=== PATIENT | male | born 1930 | race Caucasian/White ===

== ENCOUNTER 2017-12-14 11:32 | Inpatient (IN) | payer MEDICARE, OTHER ==
[2017-12-14] MEDS ORDERED: MAGNESIUM SULFATE 1 GM/100 ML D5W BAG (10MG/ML) (J3475) As Ordered (11:33)
[2017-12-14] MEDS ORDERED: ACETAMINOPHEN TAB 650MG DOSE (2X325MG) As Ordered (11:36)
[2017-12-14] MEDS: MAG SULF 1GM/100ML (MAG RUN) 1 GM in APPROPRIATE DILUENT 1 EA IV (11:40)
[2017-12-14] MEDS: ACETAMINOPHEN TAB 650MG DOSE (2X325MG) PO (12:00)
[2017-12-14 12:26] LABS: ABG BASE EXCESS -4.7 (-2.0-2.0); ABG HCO3 18.6 MEQ/L (22.0-26.0); ABG O2 SATURATION 96.7 % (95.0-99.0); ABG PARTIAL PRESSURE CO2 29.6 mmHg (35.0-45.0); ABG PARTIAL PRESSURE O2 80.7 mmHg (75.0-100.0); ABG STANDARD HCO3 20.6 MEQ/L (22.0-26.0); ABG TOTAL CO2 19.5 MEQ/L (23.0-31.0); ABG pH (ARTERIAL) 7.416 UNITS (7.350-7.450)
[2017-12-14 12:34] LABS: INTERNAL CONTROL NO RESULT
[2017-12-14 12:38] LABS: BASO % 0.3 % (0.0-1.0); EOS % 0.3 % (0.0-3.0); HEMATOCRIT 39.9 % (42.0-52.0); HEMOGLOBIN 12.9 g/dl (14.0-18.0); IMMATURE GRANULOCYTE % 0.5 % (0-3.0); LYMPH # 0.3 10^3/uL (1.5-4.5); LYMPH % 3.9 % (24.0-44.0); MEAN CORPUSCULAR HEMOGLOBIN 29.7 pg (27.0-33.0); MEAN CORPUSCULAR HGB CONC 32.3 g/dl (32.0-36.5); MEAN CORPUSCULAR VOLUME 91.7 fl (80.0-96.0); MONO % 12.6 % (0.0-5.0); NEUTROPHILS # 6.5 10^3/uL (1.8-7.7); NEUTROPHILS % 82.4 % (36.0-66.0); PLATELET COUNT, AUTOMATED 171 10^3/uL (150-450); RED BLOOD COUNT 4.35 10^6/uL (4.30-6.10); RED CELL DISTRIBUTION WIDTH 13.8 % (11.5-14.5); WHITE BLOOD COUNT 7.9 10^3/uL (4.0-10.0)
[2017-12-14 12:46] LABS: INR 1.18; PROTHROMBIN TIME 15.2 SECONDS (12.4-14.5)
[2017-12-14 12:47] LABS: PARTIAL THROMBOPLASTIN TIME 33.7 SECONDS (26.8-37.9)
[2017-12-14 12:56] LABS: MAGNESIUM LEVEL 2.2 MG/DL (1.8-2.4)
[2017-12-14 13:06] LABS: ALBUMIN 3.2 GM/DL (3.2-5.2); ALBUMIN/GLOBULIN RATIO 0.89 (1.00-1.93); ALKALINE PHOSPHATASE 96 U/L (45-117); ALT/SGPT 34 U/L (12-78); ANION GAP 9 MEQ/L (8-16); AST/SGOT 29 U/L (7-37); BILIRUBIN,DIRECT 0.2 MG/DL (0.0-0.2); BILIRUBIN,TOTAL 0.8 MG/DL (0.2-1.0); BLOOD UREA NITROGEN 23 MG/DL (7-18); CALCIUM LEVEL 8.8 MG/DL (8.8-10.2); CARBON DIOXIDE LEVEL 21 MEQ/L (21-32); CHLORIDE LEVEL 107 MEQ/L (98-107); CPK CREATINE PHOSPHOKINASE 71 U/L (39-308); GLOMERULAR FILTRATION RATE 43.5 (>35); GLUCOSE, FASTING 216 MG/DL (70-100); POTASSIUM SERUM 4.7 MEQ/L (3.5-5.1); SODIUM LEVEL 137 MEQ/L (136-145); TOTAL PROTEIN 6.8 GM/DL (6.4-8.2); TROPONIN I 0.25 NG/ML (< 0.10)
[2017-12-14 13:11] LABS: C REACTIVE PROTEIN QUANTITATIV 2.04 MG/DL (0.00-0.30)
[2017-12-14 13:14] LABS: LACTIC ACID SEPSIS PROTOCOL 1.8 MMOL/L (0.4-2.0)
[2017-12-14 13:22] LABS: INFLUENZA A AMPLIFICATION NEGATIVE (NEGATIVE); INFLUENZA B AMPLIFICATION NEGATIVE (NEGATIVE)
[2017-12-14 13:53] LABS: APPEARANCE, URINE CLEAR (CLEAR); BACTERIA, URINE AUTO NEGATIVE (NEGATIVE); BILIRUBIN, URINE AUTO NEGATIVE (NEGATIVE); BLOOD, URINE BLOOD NEGATIVE (NEGATIVE); COLOR, URINE YELLOW (YELLOW); GLUCOSE, URINE (UA) AUTO 1+ mg/dL (NEGATIVE); KETONE, URINE AUTO TRACE mg/dL (NEGATIVE); LEUKOCYTE ESTERASE, URINE AUTO NEGATIVE (NEGATIVE); NITRITE, URINE AUTO NEGATIVE (NEGATIVE); PROTEIN, URINE AUTO NEGATIVE (NEGATIVE); RBC, URINE AUTO 1 /HPF (0-3); SPECIFIC GRAVITY URINE AUTO 1.014 (1.002-1.035); SQUAMOUS EPITHELIAL CELL UR AU 0 /HPF (0-6); UROBILINOGEN, URINE AUTO 0.2 mg/dL (0.0-2.0); WBC, URINE AUTO 1 /HPF (0-3)
[2017-12-14] MEDS ORDERED: AZTREONAM 1 GM in D5W MINI-BAG PLUS 50 ML IV (14:30)
[2017-12-14] MEDS ORDERED: AZITHROMYCIN INJ 500 MG, VIAL MATE ADAPTER 1 EACH in D5W 250 ML IV ×2 (14:30→16:00)
[2017-12-14] MEDS ORDERED: GLUCOSE 4 GM CHEW TABLET PO (15:30)
[2017-12-14] MEDS ORDERED: GLUCAGON FOR INJ 1 MG VIAL (J1610) SC (15:30)
[2017-12-14] MEDS ORDERED: DEXTROSE 50% 50 ML SYRINGE IV (15:30)
[2017-12-14 17:07] LABS: BEDSIDE GLUCOSE 185 MG/DL (83-110)
[2017-12-14] MEDS: HumaLOG INSULIN (NovoLOG) PER UNIT SC ×2 (17:53→21:10)
[2017-12-14] MEDS: AZTREONAM 1 GM in D5W MINI-BAG PLUS 50 ML IV ×2 (17:54→23:22)
[2017-12-14 18:29] LABS: CPK CREATINE PHOSPHOKINASE 66 U/L (39-308); MB/CK RELATIVE INDEX 1.51 (< OR =4)
[2017-12-14] MEDS: AZITHROMYCIN INJ 500 MG, VIAL MATE ADAPTER 1 EACH in D5W 250 ML IV (19:06)
[2017-12-14] MEDS: MAGNESIUM OXIDE 400 MG TAB (MAG-OX) PO (21:05)
[2017-12-14] MEDS: ASPIRIN 81 MG ENTERIC TAB PO (21:05)
[2017-12-14] MEDS: CYANOCOBALAMIN 500 MCG TAB PO (21:05)
[2017-12-14] MEDS: DOCUSATE SODIUM 100 MG CAP PO (21:05)
[2017-12-14] MEDS: ATORVASTATIN 10 MG TAB PO (21:05)
[2017-12-14] MEDS: TAMSULOSIN 0.4 MG CAP PO (21:05)
[2017-12-14 21:31] LABS: BEDSIDE GLUCOSE 266 MG/DL (83-110)
[2017-12-15 03:18] LABS: HEMATOCRIT 35.6 % (42.0-52.0); HEMOGLOBIN 11.6 g/dl (14.0-18.0); MEAN CORPUSCULAR HEMOGLOBIN 29.6 pg (27.0-33.0); MEAN CORPUSCULAR HGB CONC 32.6 g/dl (32.0-36.5); MEAN CORPUSCULAR VOLUME 90.8 fl (80.0-96.0); PLATELET COUNT, AUTOMATED 149 10^3/uL (150-450); RED BLOOD COUNT 3.92 10^6/uL (4.30-6.10); WHITE BLOOD COUNT 7.2 10^3/uL (4.0-10.0)
[2017-12-15 03:41] LABS: ANION GAP 9 MEQ/L (8-16); BLOOD UREA NITROGEN 26 MG/DL (7-18); CALCIUM LEVEL 8.4 MG/DL (8.8-10.2); CARBON DIOXIDE LEVEL 23 MEQ/L (21-32); CHLORIDE LEVEL 107 MEQ/L (98-107); CREATININE FOR GFR 1.48 MG/DL (0.70-1.30); GLOMERULAR FILTRATION RATE 47.6 (>35); GLUCOSE, FASTING 174 MG/DL (70-100); MAGNESIUM LEVEL 2.2 MG/DL (1.8-2.4); POTASSIUM SERUM 4.6 MEQ/L (3.5-5.1); SODIUM LEVEL 139 MEQ/L (136-145)
[2017-12-15 03:45] LABS: CPK CREATINE PHOSPHOKINASE 74 U/L (39-308); MB/CK RELATIVE INDEX 1.35 (< OR =4); TROPONIN I 0.31 NG/ML (< 0.10)
[2017-12-15] MEDS ORDERED: SLF 3 ML SYR IV (04:15)
[2017-12-15] MEDS: SLF 3 ML SYR IV ×3 (06:00→21:28)
[2017-12-15] MEDS: AZTREONAM 1 GM in D5W MINI-BAG PLUS 50 ML IV ×3 (06:32→21:27)
[2017-12-15] MEDS: HumaLOG INSULIN (NovoLOG) PER UNIT SC ×4 (07:30→21:00)
[2017-12-15] MEDS: MAGNESIUM OXIDE 400 MG TAB (MAG-OX) PO ×2 (08:56→21:28)
[2017-12-15 11:12] LABS: CPK CREATINE PHOSPHOKINASE 84 U/L (39-308); MB/CK RELATIVE INDEX 1.19 (< OR =4); TROPONIN I 0.23 NG/ML (< 0.10)
[2017-12-15 12:15] LABS: BEDSIDE GLUCOSE 189 MG/DL (83-110)
[2017-12-15] MEDS: guaiFENesin 200 MG TAB PO ×3 (13:25→21:28)
[2017-12-15] MEDS: ACETAMINOPHEN 325 MG TAB PO (16:37)
[2017-12-15 17:06] LABS: BEDSIDE GLUCOSE 174 MG/DL (83-110)
[2017-12-15] MEDS: AZITHROMYCIN INJ 500 MG, VIAL MATE ADAPTER 1 EACH in D5W 250 ML IV (17:45)
[2017-12-15] MEDS: METOPROLOL TART 12.5 MG PER 1/2 TAB PO (17:48)
[2017-12-15 20:33] LABS: BEDSIDE GLUCOSE 222 MG/DL (83-110)
[2017-12-15] MEDS: ATORVASTATIN 10 MG TAB PO (21:28)
[2017-12-15] MEDS: ASPIRIN 81 MG ENTERIC TAB PO (21:28)
[2017-12-15] MEDS: TAMSULOSIN 0.4 MG CAP PO (21:28)
[2017-12-15] MEDS: DOCUSATE SODIUM 100 MG CAP PO (21:28)
[2017-12-16] MEDS: guaiFENesin 200 MG TAB PO ×6 (01:04→21:43)
[2017-12-16] MEDS: SLF 3 ML SYR IV ×3 (05:10→21:43)
[2017-12-16] MEDS: METOPROLOL TART 12.5 MG PER 1/2 TAB PO ×4 (05:10→17:35)
[2017-12-16] MEDS: AZTREONAM 1 GM in D5W MINI-BAG PLUS 50 ML IV ×3 (05:11→21:43)
[2017-12-16 05:52] LABS: HEMATOCRIT 37.2 % (42.0-52.0); MEAN CORPUSCULAR HEMOGLOBIN 28.8 pg (27.0-33.0); MEAN CORPUSCULAR HGB CONC 32.3 g/dl (32.0-36.5); MEAN CORPUSCULAR VOLUME 89.4 fl (80.0-96.0); PLATELET COUNT, AUTOMATED 146 10^3/uL (150-450); RED BLOOD COUNT 4.16 10^6/uL (4.30-6.10); RED CELL DISTRIBUTION WIDTH 13.5 % (11.5-14.5); WHITE BLOOD COUNT 8.2 10^3/uL (4.0-10.0)
[2017-12-16 06:13] LABS: ANION GAP 7 MEQ/L (8-16); BLOOD UREA NITROGEN 29 MG/DL (7-18); CALCIUM LEVEL 8.6 MG/DL (8.8-10.2); CARBON DIOXIDE LEVEL 23 MEQ/L (21-32); CHLORIDE LEVEL 104 MEQ/L (98-107); CREATININE FOR GFR 1.48 MG/DL (0.70-1.30); GLOMERULAR FILTRATION RATE 47.6 (>35); GLUCOSE, FASTING 166 MG/DL (70-100); MAGNESIUM LEVEL 2.2 MG/DL (1.8-2.4); POTASSIUM SERUM 4.7 MEQ/L (3.5-5.1); SODIUM LEVEL 134 MEQ/L (136-145)
[2017-12-16] MEDS: HumaLOG INSULIN (NovoLOG) PER UNIT SC ×4 (09:02→21:00)
[2017-12-16] MEDS: MAGNESIUM OXIDE 400 MG TAB (MAG-OX) PO ×2 (09:02→21:43)
[2017-12-16] MEDS: NS 1,000 ML IV (09:40)
[2017-12-16 11:58] LABS: BEDSIDE GLUCOSE 126 MG/DL (83-110)
[2017-12-16] MEDS: ACETAMINOPHEN 325 MG TAB PO (12:02)
[2017-12-16] MEDS ORDERED: VANCOMYCIN HCL 750 MG, VIAL MATE ADAPTER 1 EACH in D5W 250 ML IV (14:15)
[2017-12-16] MEDS: VANCOMYCIN HCL 1,000 MG, VIAL MATE ADAPTER 1 EACH in D5W 250 ML IV (15:23)
[2017-12-16] MEDS: VANCOMYCIN HCL 500 MG in D5W MINI-BAG PLUS 100 ML IV (16:35)
[2017-12-16 17:11] LABS: BEDSIDE GLUCOSE 220 MG/DL (83-110)
[2017-12-16] MEDS: AZITHROMYCIN INJ 500 MG, VIAL MATE ADAPTER 1 EACH in D5W 250 ML IV (17:35)
[2017-12-16 21:41] LABS: BEDSIDE GLUCOSE 93 MG/DL (83-110)
[2017-12-16] MEDS: TAMSULOSIN 0.4 MG CAP PO (21:43)
[2017-12-16] MEDS: ASPIRIN 81 MG ENTERIC TAB PO (21:43)
[2017-12-16] MEDS: ATORVASTATIN 10 MG TAB PO (21:43)
[2017-12-16] MEDS: DOCUSATE SODIUM 100 MG CAP PO (21:43)
[2017-12-17] MEDS: guaiFENesin 200 MG TAB PO ×6 (00:56→21:34)
[2017-12-17] MEDS: ACETAMINOPHEN 325 MG TAB PO ×4 (00:57→23:52)
[2017-12-17] MEDS: NS 1,000 ML IV (00:57)
[2017-12-17] MEDS: METOPROLOL TART 12.5 MG PER 1/2 TAB PO ×4 (00:57→17:36)
[2017-12-17 05:09] LABS: HEMATOCRIT 35.8 % (42.0-52.0); HEMOGLOBIN 11.8 g/dl (14.0-18.0); MEAN CORPUSCULAR HEMOGLOBIN 29.2 pg (27.0-33.0); MEAN CORPUSCULAR VOLUME 88.6 fl (80.0-96.0); PLATELET COUNT, AUTOMATED 157 10^3/uL (150-450); RED BLOOD COUNT 4.04 10^6/uL (4.30-6.10); RED CELL DISTRIBUTION WIDTH 13.4 % (11.5-14.5); WHITE BLOOD COUNT 5.6 10^3/uL (4.0-10.0)
[2017-12-17 05:21] LABS: ANION GAP 7 MEQ/L (8-16); BLOOD UREA NITROGEN 38 MG/DL (7-18); CALCIUM LEVEL 8.2 MG/DL (8.8-10.2); CARBON DIOXIDE LEVEL 22 MEQ/L (21-32); CHLORIDE LEVEL 105 MEQ/L (98-107); CREATININE FOR GFR 1.49 MG/DL (0.70-1.30); GLOMERULAR FILTRATION RATE 47.3 (>35); GLUCOSE, FASTING 154 MG/DL (70-100); MAGNESIUM LEVEL 2.2 MG/DL (1.8-2.4); POTASSIUM SERUM 4.5 MEQ/L (3.5-5.1); SODIUM LEVEL 134 MEQ/L (136-145)
[2017-12-17] MEDS: SLF 3 ML SYR IV ×3 (06:00→21:44)
[2017-12-17] MEDS: AZTREONAM 1 GM in D5W MINI-BAG PLUS 50 ML IV ×3 (06:34→21:35)
[2017-12-17] MEDS: HumaLOG INSULIN (NovoLOG) PER UNIT SC ×4 (08:57→21:00)
[2017-12-17] MEDS: VANCOMYCIN HCL 1,000 MG, VIAL MATE ADAPTER 1 EACH in D5W 250 ML IV (08:58)
[2017-12-17] MEDS: MAGNESIUM OXIDE 400 MG TAB (MAG-OX) PO ×2 (08:58→21:34)
[2017-12-17 11:40] LABS: BEDSIDE GLUCOSE 195 MG/DL (83-110)
[2017-12-17] MEDS: SENOKOT S TAB PO ×2 (11:57→23:52)
[2017-12-17 16:51] LABS: BEDSIDE GLUCOSE 115 MG/DL (83-110)
[2017-12-17 21:30] LABS: BEDSIDE GLUCOSE 120 MG/DL (83-110)
[2017-12-17] MEDS: ASPIRIN 81 MG ENTERIC TAB PO (21:33)
[2017-12-17] MEDS: DOCUSATE SODIUM 100 MG CAP PO (21:33)
[2017-12-17] MEDS: TAMSULOSIN 0.4 MG CAP PO (21:34)
[2017-12-17] MEDS: ATORVASTATIN 10 MG TAB PO (21:34)
[2017-12-17] MEDS: CYANOCOBALAMIN 500 MCG TAB PO (21:34)
[2017-12-18 00:06] LABS: BODY FLUID CULTURE Not Indicated (.); LEGIONELLA ANTIGEN URINE Negative (Negative); ORGANISM ID Not indicated. (.); SPECIMEN SOURCE Urine (.); URINE STREP PNEUMONIAE ANTIGEN Negative (Negative)
[2017-12-18 05:47] LABS: HEMATOCRIT 38.6 % (42.0-52.0); HEMOGLOBIN 12.7 g/dl (14.0-18.0); MEAN CORPUSCULAR HEMOGLOBIN 29.6 pg (27.0-33.0); MEAN CORPUSCULAR HGB CONC 32.9 g/dl (32.0-36.5); PLATELET COUNT, AUTOMATED 163 10^3/uL (150-450); RED BLOOD COUNT 4.29 10^6/uL (4.30-6.10); RED CELL DISTRIBUTION WIDTH 13.4 % (11.5-14.5)
[2017-12-18 06:18] LABS: ANION GAP 11 MEQ/L (8-16); BLOOD UREA NITROGEN 40 MG/DL (7-18); CALCIUM LEVEL 8.2 MG/DL (8.8-10.2); CARBON DIOXIDE LEVEL 22 MEQ/L (21-32); CHLORIDE LEVEL 103 MEQ/L (98-107); CREATININE FOR GFR 1.67 MG/DL (0.70-1.30); GLOMERULAR FILTRATION RATE 41.4 (>35); GLUCOSE, FASTING 133 MG/DL (70-100); MAGNESIUM LEVEL 2.5 MG/DL (1.8-2.4); POTASSIUM SERUM 5.1 MEQ/L (3.5-5.1); SODIUM LEVEL 136 MEQ/L (136-145)
[2017-12-18] MEDS: METOPROLOL TART 12.5 MG PER 1/2 TAB PO ×5 (06:39→23:37)
[2017-12-18] MEDS: MOXIFLOXACIN 400 MG TAB PO (06:39)
[2017-12-18] MEDS: ACETAMINOPHEN 325 MG TAB PO (06:40)
[2017-12-18] MEDS: SLF 3 ML SYR IV ×3 (06:40→21:03)
[2017-12-18] MEDS: HumaLOG INSULIN (NovoLOG) PER UNIT SC ×4 (09:00→21:00)
[2017-12-18] MEDS: MAGNESIUM OXIDE 400 MG TAB (MAG-OX) PO ×2 (09:00→20:48)
[2017-12-18] MEDS: guaiFENesin 200 MG TAB PO ×4 (09:09→21:01)
[2017-12-18 12:12] LABS: BEDSIDE GLUCOSE 201 MG/DL (83-110)
[2017-12-18] MEDS: NS 1,000 ML IV (14:58)
[2017-12-18 17:42] LABS: BEDSIDE GLUCOSE 225 MG/DL (83-110)
[2017-12-18] MEDS: SENOKOT S TAB PO (21:00)
[2017-12-18] MEDS: ATORVASTATIN 10 MG TAB PO (21:01)
[2017-12-18] MEDS: ASPIRIN 81 MG ENTERIC TAB PO (21:02)
[2017-12-18] MEDS: TAMSULOSIN 0.4 MG CAP PO (21:03)
[2017-12-18] MEDS: ACETAMINOPHEN TAB 650MG DOSE (2X325MG) PO (21:04)
[2017-12-18 21:29] LABS: BEDSIDE GLUCOSE 98 MG/DL (83-110)
[2017-12-18] MEDS: ALBUTEROL SULFATE 2.5 MG/0.5 ML INH NEB SOLN NEB (22:03)
[2017-12-19 05:09] LABS: HEMATOCRIT 34.8 % (42.0-52.0); HEMOGLOBIN 11.4 g/dl (14.0-18.0); MEAN CORPUSCULAR HEMOGLOBIN 28.9 pg (27.0-33.0); MEAN CORPUSCULAR HGB CONC 32.8 g/dl (32.0-36.5); MEAN CORPUSCULAR VOLUME 88.1 fl (80.0-96.0); PLATELET COUNT, AUTOMATED 186 10^3/uL (150-450); RED BLOOD COUNT 3.95 10^6/uL (4.30-6.10); RED CELL DISTRIBUTION WIDTH 13.5 % (11.5-14.5); WHITE BLOOD COUNT 5.6 10^3/uL (4.0-10.0)
[2017-12-19] MEDS: METOPROLOL TART 12.5 MG PER 1/2 TAB PO (05:21)
[2017-12-19] MEDS: SLF 3 ML SYR IV ×3 (05:21→21:34)
[2017-12-19 05:29] LABS: ANION GAP 9 MEQ/L (8-16); BLOOD UREA NITROGEN 46 MG/DL (7-18); CALCIUM LEVEL 8.4 MG/DL (8.8-10.2); CARBON DIOXIDE LEVEL 24 MEQ/L (21-32); CHLORIDE LEVEL 106 MEQ/L (98-107); CREATININE FOR GFR 1.67 MG/DL (0.70-1.30); GLOMERULAR FILTRATION RATE 41.4 (>35); GLUCOSE, FASTING 133 MG/DL (70-100); MAGNESIUM LEVEL 2.6 MG/DL (1.8-2.4); POTASSIUM SERUM 4.2 MEQ/L (3.5-5.1); SODIUM LEVEL 139 MEQ/L (136-145)
[2017-12-19] MEDS: MOXIFLOXACIN 400 MG TAB PO (06:15)
[2017-12-19] MEDS: HumaLOG INSULIN (NovoLOG) PER UNIT SC ×4 (07:30→21:34)
[2017-12-19] MEDS: guaiFENesin 200 MG TAB PO ×4 (08:07→21:28)
[2017-12-19] MEDS: NS 1,000 ML IV ×2 (08:07→21:27)
[2017-12-19] MEDS: MAGNESIUM OXIDE 400 MG TAB (MAG-OX) PO ×2 (09:00→20:44)
[2017-12-19 12:00] LABS: BEDSIDE GLUCOSE 293 MG/DL (83-110)
[2017-12-19 16:34] LABS: BEDSIDE GLUCOSE 131 MG/DL (83-110)
[2017-12-19] MEDS: ATORVASTATIN 10 MG TAB PO (21:28)
[2017-12-19] MEDS: TAMSULOSIN 0.4 MG CAP PO (21:28)
[2017-12-19] MEDS: SENOKOT S TAB PO (21:28)
[2017-12-19] MEDS: ASPIRIN 81 MG ENTERIC TAB PO (21:28)
[2017-12-19 21:58] LABS: BEDSIDE GLUCOSE 183 MG/DL (83-110)
[2017-12-20 05:06] LABS: MAGNESIUM LEVEL 2.6 MG/DL (1.8-2.4)
[2017-12-20] MEDS: MOXIFLOXACIN 400 MG TAB PO (05:51)
[2017-12-20] MEDS: SLF 3 ML SYR IV ×3 (05:52→20:16)
[2017-12-20 07:39] LABS: BEDSIDE GLUCOSE 158 MG/DL (83-110)
[2017-12-20] MEDS: guaiFENesin 200 MG TAB PO ×4 (07:47→20:16)
[2017-12-20] MEDS: HumaLOG INSULIN (NovoLOG) PER UNIT SC ×4 (07:47→20:16)
[2017-12-20 08:45] LABS: BASO % 0.3 % (0.0-1.0); EOS # 0.2 10^3/uL (0.0-0.50); EOS % 3.9 % (0.0-3.0); HEMATOCRIT 34.7 % (42.0-52.0); HEMOGLOBIN 11.3 g/dl (14.0-18.0); LYMPH # 1.4 10^3/uL (1.5-4.5); LYMPH % 21.8 % (24.0-44.0); MEAN CORPUSCULAR HEMOGLOBIN 29.4 pg (27.0-33.0); MEAN CORPUSCULAR HGB CONC 32.6 g/dl (32.0-36.5); MEAN CORPUSCULAR VOLUME 90.4 fl (80.0-96.0); MONO % 16.6 % (0.0-5.0); NEUTROPHILS # 3.5 10^3/uL (1.8-7.7); NEUTROPHILS % 56.4 % (36.0-66.0); PLATELET COUNT, AUTOMATED 210 10^3/uL (150-450); RED BLOOD COUNT 3.84 10^6/uL (4.30-6.10); RED CELL DISTRIBUTION WIDTH 13.9 % (11.5-14.5); WHITE BLOOD COUNT 6.2 10^3/uL (4.0-10.0)
[2017-12-20 08:53] LABS: ALBUMIN 2.4 GM/DL (3.2-5.2); ALBUMIN/GLOBULIN RATIO 0.67 (1.00-1.93); ALKALINE PHOSPHATASE 80 U/L (45-117); ALT/SGPT 64 U/L (12-78); ANION GAP 9 MEQ/L (8-16); AST/SGOT 71 U/L (7-37); BILIRUBIN,TOTAL 0.5 MG/DL (0.2-1.0); BLOOD UREA NITROGEN 35 MG/DL (7-18); CALCIUM LEVEL 8.1 MG/DL (8.8-10.2); CARBON DIOXIDE LEVEL 20 MEQ/L (21-32); CHLORIDE LEVEL 114 MEQ/L (98-107); CREATININE FOR GFR 1.41 MG/DL (0.70-1.30); GLOMERULAR FILTRATION RATE 50.4 (>35); GLUCOSE, FASTING 150 MG/DL (70-100); POTASSIUM SERUM 4.3 MEQ/L (3.5-5.1); SODIUM LEVEL 143 MEQ/L (136-145)
[2017-12-20] MEDS: MAGNESIUM OXIDE 400 MG TAB (MAG-OX) PO (09:00)
[2017-12-20 12:04] LABS: BEDSIDE GLUCOSE 245 MG/DL (83-110)
[2017-12-20 17:05] LABS: BEDSIDE GLUCOSE 224 MG/DL (83-110)
[2017-12-20] MEDS: SENOKOT S TAB PO (20:15)
[2017-12-20] MEDS: TAMSULOSIN 0.4 MG CAP PO (20:15)
[2017-12-20 20:16] LABS: BEDSIDE GLUCOSE 213 MG/DL (83-110)
[2017-12-20] MEDS: ASPIRIN 81 MG ENTERIC TAB PO (20:16)
[2017-12-20] MEDS: ATORVASTATIN 10 MG TAB PO (20:16)
[2017-12-21 05:07] LABS: BASO % 0.2 % (0.0-1.0); EOS # 0.3 10^3/uL (0.0-0.50); EOS % 2.7 % (0.0-3.0); HEMATOCRIT 35.5 % (42.0-52.0); HEMOGLOBIN 11.5 g/dl (14.0-18.0); IMMATURE GRANULOCYTE % 1.1 % (0-3.0); LYMPH # 1.4 10^3/uL (1.5-4.5); LYMPH % 15.1 % (24.0-44.0); MEAN CORPUSCULAR HEMOGLOBIN 28.8 pg (27.0-33.0); MEAN CORPUSCULAR HGB CONC 32.4 g/dl (32.0-36.5); MEAN CORPUSCULAR VOLUME 88.8 fl (80.0-96.0); MONO % 11.2 % (0.0-5.0); NEUTROPHILS # 6.4 10^3/uL (1.8-7.7); NEUTROPHILS % 69.7 % (36.0-66.0); PLATELET COUNT, AUTOMATED 275 10^3/uL (150-450); RED CELL DISTRIBUTION WIDTH 13.7 % (11.5-14.5); WHITE BLOOD COUNT 9.2 10^3/uL (4.0-10.0)
[2017-12-21 05:32] LABS: ALBUMIN 2.5 GM/DL (3.2-5.2); ALBUMIN/GLOBULIN RATIO 0.61 (1.00-1.93); ALKALINE PHOSPHATASE 86 U/L (45-117); ALT/SGPT 62 U/L (12-78); ANION GAP 9 MEQ/L (8-16); AST/SGOT 51 U/L (7-37); BILIRUBIN,TOTAL 0.6 MG/DL (0.2-1.0); BLOOD UREA NITROGEN 27 MG/DL (7-18); CALCIUM LEVEL 8.4 MG/DL (8.8-10.2); CARBON DIOXIDE LEVEL 22 MEQ/L (21-32); CHLORIDE LEVEL 110 MEQ/L (98-107); CREATININE FOR GFR 1.46 MG/DL (0.70-1.30); GLOMERULAR FILTRATION RATE 48.4 (>35); GLUCOSE, FASTING 216 MG/DL (70-100); MAGNESIUM LEVEL 2.4 MG/DL (1.8-2.4); POTASSIUM SERUM 4.5 MEQ/L (3.5-5.1); SODIUM LEVEL 141 MEQ/L (136-145); TOTAL PROTEIN 6.6 GM/DL (6.4-8.2)
[2017-12-21] MEDS: SLF 3 ML SYR IV ×3 (06:03→20:03)
[2017-12-21] MEDS: MOXIFLOXACIN 400 MG TAB PO (06:03)
[2017-12-21 07:32] LABS: C REACTIVE PROTEIN QUANTITATIV 4.55 MG/DL (0.00-0.30)
[2017-12-21] MEDS: HumaLOG INSULIN (NovoLOG) PER UNIT SC ×4 (09:11→20:02)
[2017-12-21] MEDS: guaiFENesin 200 MG TAB PO ×4 (09:12→20:01)
[2017-12-21 11:32] LABS: BEDSIDE GLUCOSE 321 MG/DL (83-110)
[2017-12-21 17:13] LABS: BEDSIDE GLUCOSE 124 MG/DL (83-110)
[2017-12-21] MEDS: ASPIRIN 81 MG ENTERIC TAB PO (20:01)
[2017-12-21] MEDS: CYANOCOBALAMIN 500 MCG TAB PO (20:02)
[2017-12-21] MEDS: TAMSULOSIN 0.4 MG CAP PO (20:02)
[2017-12-21] MEDS: SENOKOT S TAB PO (20:02)
[2017-12-21] MEDS: ATORVASTATIN 10 MG TAB PO (20:02)
[2017-12-21 20:14] LABS: BEDSIDE GLUCOSE 208 MG/DL (83-110)
[2017-12-22 05:06] LABS: BASO % 0.5 % (0.0-1.0); EOS # 0.2 10^3/uL (0.0-0.50); EOS % 2.9 % (0.0-3.0); HEMOGLOBIN 11.8 g/dl (14.0-18.0); IMMATURE GRANULOCYTE % 2.7 % (0-3.0); LYMPH # 1.6 10^3/uL (1.5-4.5); LYMPH % 18.6 % (24.0-44.0); MEAN CORPUSCULAR HEMOGLOBIN 29.4 pg (27.0-33.0); MEAN CORPUSCULAR HGB CONC 32.8 g/dl (32.0-36.5); MEAN CORPUSCULAR VOLUME 89.8 fl (80.0-96.0); MONO % 12.1 % (0.0-5.0); NEUTROPHILS # 5.3 10^3/uL (1.8-7.7); NEUTROPHILS % 63.2 % (36.0-66.0); PLATELET COUNT, AUTOMATED 281 10^3/uL (150-450); RED BLOOD COUNT 4.01 10^6/uL (4.30-6.10); RED CELL DISTRIBUTION WIDTH 13.6 % (11.5-14.5); WHITE BLOOD COUNT 8.4 10^3/uL (4.0-10.0)
[2017-12-22] MEDS: SLF 3 ML SYR IV ×3 (05:21→20:07)
[2017-12-22 05:24] LABS: ALBUMIN 2.5 GM/DL (3.2-5.2); ALBUMIN/GLOBULIN RATIO 0.61 (1.00-1.93); ALKALINE PHOSPHATASE 89 U/L (45-117); ALT/SGPT 58 U/L (12-78); ANION GAP 8 MEQ/L (8-16); AST/SGOT 40 U/L (7-37); BILIRUBIN,TOTAL 0.7 MG/DL (0.2-1.0); BLOOD UREA NITROGEN 24 MG/DL (7-18); C REACTIVE PROTEIN QUANTITATIV 3.87 MG/DL (0.00-0.30); CALCIUM LEVEL 8.7 MG/DL (8.8-10.2); CARBON DIOXIDE LEVEL 22 MEQ/L (21-32); CHLORIDE LEVEL 112 MEQ/L (98-107); GLOMERULAR FILTRATION RATE 46.9 (>35); GLUCOSE, FASTING 183 MG/DL (70-100); POTASSIUM SERUM 4.6 MEQ/L (3.5-5.1); SODIUM LEVEL 142 MEQ/L (136-145); TOTAL PROTEIN 6.6 GM/DL (6.4-8.2)
[2017-12-22] MEDS: guaiFENesin 200 MG TAB PO ×4 (08:09→20:06)
[2017-12-22] MEDS: HumaLOG INSULIN (NovoLOG) PER UNIT SC ×4 (08:09→20:07)
[2017-12-22 11:23] LABS: BEDSIDE GLUCOSE 303 MG/DL (83-110)
[2017-12-22 16:36] LABS: BEDSIDE GLUCOSE 187 MG/DL (83-110)
[2017-12-22] MEDS: TAMSULOSIN 0.4 MG CAP PO (20:06)
[2017-12-22] MEDS: SENOKOT S TAB PO (20:06)
[2017-12-22] MEDS: ATORVASTATIN 10 MG TAB PO (20:06)
[2017-12-22] MEDS: ASPIRIN 81 MG ENTERIC TAB PO (20:06)
[2017-12-22 20:18] LABS: BEDSIDE GLUCOSE 247 MG/DL (83-110)
[2017-12-23] MEDS: SLF 3 ML SYR IV ×3 (05:39→22:29)
[2017-12-23 07:09] LABS: BASO % 0.6 % (0.0-1.0); EOS # 0.1 10^3/uL (0.0-0.50); EOS % 2.2 % (0.0-3.0); HEMATOCRIT 36.2 % (42.0-52.0); HEMOGLOBIN 11.8 g/dl (14.0-18.0); IMMATURE GRANULOCYTE % 4.4 % (0-3.0); LYMPH # 1.2 10^3/uL (1.5-4.5); LYMPH % 18.9 % (24.0-44.0); MEAN CORPUSCULAR HEMOGLOBIN 28.9 pg (27.0-33.0); MEAN CORPUSCULAR HGB CONC 32.6 g/dl (32.0-36.5); MEAN CORPUSCULAR VOLUME 88.7 fl (80.0-96.0); MONO # 0.8 10^3/uL (0.0-0.8); MONO % 12.1 % (0.0-5.0); NEUTROPHILS # 3.9 10^3/uL (1.8-7.7); NEUTROPHILS % 61.8 % (36.0-66.0); PLATELET COUNT, AUTOMATED 331 10^3/uL (150-450); RED BLOOD COUNT 4.08 10^6/uL (4.30-6.10); RED CELL DISTRIBUTION WIDTH 13.5 % (11.5-14.5); WHITE BLOOD COUNT 6.4 10^3/uL (4.0-10.0)
[2017-12-23 07:41] LABS: ALBUMIN 2.6 GM/DL (3.2-5.2); ALBUMIN/GLOBULIN RATIO 0.62 (1.00-1.93); ALKALINE PHOSPHATASE 268 U/L (45-117); ALT/SGPT 309 U/L (12-78); ANION GAP 8 MEQ/L (8-16); AST/SGOT 390 U/L (7-37); BILIRUBIN,TOTAL 0.9 MG/DL (0.2-1.0); BLOOD UREA NITROGEN 22 MG/DL (7-18); CARBON DIOXIDE LEVEL 22 MEQ/L (21-32); CHLORIDE LEVEL 109 MEQ/L (98-107); CREATININE FOR GFR 1.42 MG/DL (0.70-1.30); GLUCOSE, FASTING 219 MG/DL (70-100); POTASSIUM SERUM 4.6 MEQ/L (3.5-5.1); SODIUM LEVEL 139 MEQ/L (136-145); TOTAL PROTEIN 6.8 GM/DL (6.4-8.2)
[2017-12-23] MEDS: HumaLOG INSULIN (NovoLOG) PER UNIT SC ×4 (07:54→21:00)
[2017-12-23] MEDS: guaiFENesin 200 MG TAB PO ×4 (07:54→22:29)
[2017-12-23 08:53] LABS: ACETAMINOPHEN LEVEL < 2.0 UG/ML (10.0-30.0)
[2017-12-23 11:48] LABS: BEDSIDE GLUCOSE 222 MG/DL (83-110)
[2017-12-23 12:07] LABS: HEPATITIS B SURFACE ANTIGEN NEGATIVE (NEGATIVE)
[2017-12-23 12:12] LABS: HEPATITIS C VIRUS ABY INDEX 0.1 INDEX (<0.8)
[2017-12-23 12:16] LABS: HEPATITIS B CORE ANTIBODY IGM NEGATIVE (NEGATIVE)
[2017-12-23 12:18] LABS: HEPATITIS A ANTIBODY IGM NEGATIVE (NEGATIVE)
[2017-12-23 16:53] LABS: BEDSIDE GLUCOSE 191 MG/DL (83-110)
[2017-12-23 20:55] LABS: BEDSIDE GLUCOSE 220 MG/DL (83-110)
[2017-12-23] MEDS: TAMSULOSIN 0.4 MG CAP PO (22:29)
[2017-12-23] MEDS: SENOKOT S TAB PO (22:29)
[2017-12-23] MEDS: ASPIRIN 81 MG ENTERIC TAB PO (22:29)
[2017-12-24] MEDS: SLF 3 ML SYR IV (06:00)
[2017-12-24 06:14] LABS: BASO % 0.5 % (0.0-1.0); EOS # 0.2 10^3/uL (0.0-0.50); EOS % 2.7 % (0.0-3.0); HEMATOCRIT 36.1 % (42.0-52.0); IMMATURE GRANULOCYTE % 3.8 % (0-3.0); LYMPH # 1.4 10^3/uL (1.5-4.5); LYMPH % 17.7 % (24.0-44.0); MEAN CORPUSCULAR HEMOGLOBIN 29.6 pg (27.0-33.0); MEAN CORPUSCULAR HGB CONC 33.2 g/dl (32.0-36.5); MEAN CORPUSCULAR VOLUME 88.9 fl (80.0-96.0); MONO # 0.9 10^3/uL (0.0-0.8); MONO % 11.1 % (0.0-5.0); NEUTROPHILS # 4.9 10^3/uL (1.8-7.7); NEUTROPHILS % 64.2 % (36.0-66.0); PLATELET COUNT, AUTOMATED 335 10^3/uL (150-450); RED BLOOD COUNT 4.06 10^6/uL (4.30-6.10); RED CELL DISTRIBUTION WIDTH 13.6 % (11.5-14.5); WHITE BLOOD COUNT 7.7 10^3/uL (4.0-10.0)
[2017-12-24 06:35] LABS: ALBUMIN 2.7 GM/DL (3.2-5.2); ALBUMIN/GLOBULIN RATIO 0.61 (1.00-1.93); ALKALINE PHOSPHATASE 225 U/L (45-117); ALT/SGPT 197 U/L (12-78); ANION GAP 8 MEQ/L (8-16); AST/SGOT 121 U/L (7-37); BILIRUBIN,TOTAL 0.9 MG/DL (0.2-1.0); BLOOD UREA NITROGEN 22 MG/DL (7-18); C REACTIVE PROTEIN QUANTITATIV 1.86 MG/DL (0.00-0.30); CALCIUM LEVEL 9.3 MG/DL (8.8-10.2); CARBON DIOXIDE LEVEL 24 MEQ/L (21-32); CHLORIDE LEVEL 108 MEQ/L (98-107); CREATININE FOR GFR 1.42 MG/DL (0.70-1.30); GLUCOSE, FASTING 197 MG/DL (70-100); POTASSIUM SERUM 4.9 MEQ/L (3.5-5.1); SODIUM LEVEL 140 MEQ/L (136-145); TOTAL PROTEIN 7.1 GM/DL (6.4-8.2)
[2017-12-24] MEDS: HumaLOG INSULIN (NovoLOG) PER UNIT SC ×4 (07:59→21:00)
[2017-12-24] MEDS: guaiFENesin 200 MG TAB PO ×4 (08:00→21:39)
[2017-12-24 11:42] LABS: BEDSIDE GLUCOSE 281 MG/DL (83-110)
[2017-12-24] MEDS ORDERED: CEPACOL LOZENGE PO (16:00)
[2017-12-24 17:29] LABS: BEDSIDE GLUCOSE 185 MG/DL (83-110)
[2017-12-24 21:22] LABS: BEDSIDE GLUCOSE 222 MG/DL (83-110)
[2017-12-24] MEDS: CYANOCOBALAMIN 500 MCG TAB PO (21:38)
[2017-12-24] MEDS: TAMSULOSIN 0.4 MG CAP PO (21:38)
[2017-12-24] MEDS: SENOKOT S TAB PO (21:38)
[2017-12-24] MEDS: ASPIRIN 81 MG ENTERIC TAB PO (21:39)
[2017-12-25 06:57] LABS: BASO # 0.1 10^3/uL (0.0-0.2); BASO % 0.5 % (0.0-1.0); EOS # 0.2 10^3/uL (0.0-0.50); EOS % 1.7 % (0.0-3.0); HEMOGLOBIN 12.1 g/dl (14.0-18.0); IMMATURE GRANULOCYTE % 2.2 % (0-3.0); LYMPH # 1.2 10^3/uL (1.5-4.5); LYMPH % 11.3 % (24.0-44.0); MEAN CORPUSCULAR HGB CONC 32.7 g/dl (32.0-36.5); MEAN CORPUSCULAR VOLUME 88.7 fl (80.0-96.0); MONO % 9.1 % (0.0-5.0); NEUTROPHILS # 7.9 10^3/uL (1.8-7.7); NEUTROPHILS % 75.2 % (36.0-66.0); PLATELET COUNT, AUTOMATED 398 10^3/uL (150-450); RED BLOOD COUNT 4.17 10^6/uL (4.30-6.10); RED CELL DISTRIBUTION WIDTH 13.5 % (11.5-14.5); WHITE BLOOD COUNT 10.5 10^3/uL (4.0-10.0)
[2017-12-25 07:15] LABS: GLUCOSE, FASTING 222 MG/DL (70-100)
[2017-12-25 07:16] LABS: ALBUMIN 2.7 GM/DL (3.2-5.2); ALBUMIN/GLOBULIN RATIO 0.57 (1.00-1.93); ALKALINE PHOSPHATASE 213 U/L (45-117); ALT/SGPT 139 U/L (12-78); ANION GAP 7 MEQ/L (8-16); AST/SGOT 64 U/L (7-37); BILIRUBIN,TOTAL 0.8 MG/DL (0.2-1.0); BLOOD UREA NITROGEN 20 MG/DL (7-18); C REACTIVE PROTEIN QUANTITATIV 1.45 MG/DL (0.00-0.30); CALCIUM LEVEL 9.6 MG/DL (8.8-10.2); CARBON DIOXIDE LEVEL 24 MEQ/L (21-32); CHLORIDE LEVEL 107 MEQ/L (98-107); CREATININE FOR GFR 1.39 MG/DL (0.70-1.30); GLOMERULAR FILTRATION RATE 51.2 (>35); POTASSIUM SERUM 4.9 MEQ/L (3.5-5.1); SODIUM LEVEL 138 MEQ/L (136-145); TOTAL PROTEIN 7.4 GM/DL (6.4-8.2)
[2017-12-25] MEDS: guaiFENesin 200 MG TAB PO ×4 (07:52→20:07)
[2017-12-25] MEDS: HumaLOG INSULIN (NovoLOG) PER UNIT SC ×4 (07:52→20:08)
[2017-12-25 11:56] LABS: BEDSIDE GLUCOSE 320 MG/DL (83-110)
[2017-12-25] MEDS ORDERED: BACTRIM 160MG/800MG DS TAB PO (12:15)
[2017-12-25] MEDS: DOXYCYCLINE HYCLATE 100 MG TAB PO ×2 (13:05→20:08)
[2017-12-25 16:33] LABS: BEDSIDE GLUCOSE 168 MG/DL (83-110)
[2017-12-25] MEDS: SENOKOT S TAB PO (20:08)
[2017-12-25] MEDS: ASPIRIN 81 MG ENTERIC TAB PO (20:08)
[2017-12-25] MEDS: TAMSULOSIN 0.4 MG CAP PO (20:08)
[2017-12-25 21:00] LABS: BEDSIDE GLUCOSE 225 MG/DL (83-110)
[2017-12-26 05:27] LABS: BASO # 0.1 10^3/uL (0.0-0.2); BASO % 0.6 % (0.0-1.0); EOS # 0.2 10^3/uL (0.0-0.50); HEMATOCRIT 37.8 % (42.0-52.0); HEMOGLOBIN 12.2 g/dl (14.0-18.0); IMMATURE GRANULOCYTE % 2.9 % (0-3.0); LYMPH # 1.3 10^3/uL (1.5-4.5); LYMPH % 13.2 % (24.0-44.0); MEAN CORPUSCULAR HEMOGLOBIN 29.3 pg (27.0-33.0); MEAN CORPUSCULAR HGB CONC 32.3 g/dl (32.0-36.5); MEAN CORPUSCULAR VOLUME 90.6 fl (80.0-96.0); MONO # 1.1 10^3/uL (0.0-0.8); NEUTROPHILS # 6.9 10^3/uL (1.8-7.7); NEUTROPHILS % 70.3 % (36.0-66.0); PLATELET COUNT, AUTOMATED 370 10^3/uL (150-450); RED BLOOD COUNT 4.17 10^6/uL (4.30-6.10); RED CELL DISTRIBUTION WIDTH 13.7 % (11.5-14.5); WHITE BLOOD COUNT 9.9 10^3/uL (4.0-10.0)
[2017-12-26 05:49] LABS: ALBUMIN 2.8 GM/DL (3.2-5.2); ALBUMIN/GLOBULIN RATIO 0.62 (1.00-1.93); ALKALINE PHOSPHATASE 191 U/L (45-117); ALT/SGPT 115 U/L (12-78); ANION GAP 6 MEQ/L (8-16); AST/SGOT 49 U/L (7-37); BILIRUBIN,TOTAL 0.7 MG/DL (0.2-1.0); BLOOD UREA NITROGEN 26 MG/DL (7-18); C REACTIVE PROTEIN QUANTITATIV 1.49 MG/DL (0.00-0.30); CALCIUM LEVEL 9.7 MG/DL (8.8-10.2); CARBON DIOXIDE LEVEL 25 MEQ/L (21-32); CHLORIDE LEVEL 107 MEQ/L (98-107); CREATININE FOR GFR 1.58 MG/DL (0.70-1.30); GLOMERULAR FILTRATION RATE 44.2 (>35); GLUCOSE, FASTING 231 MG/DL (70-100); SODIUM LEVEL 138 MEQ/L (136-145); TOTAL PROTEIN 7.3 GM/DL (6.4-8.2)
[2017-12-26] MEDS: guaiFENesin 200 MG TAB PO ×4 (08:49→21:34)
[2017-12-26] MEDS: DOXYCYCLINE HYCLATE 100 MG TAB PO ×2 (08:49→21:34)
[2017-12-26] MEDS: HumaLOG INSULIN (NovoLOG) PER UNIT SC ×4 (08:49→21:00)
[2017-12-26 12:22] LABS: BEDSIDE GLUCOSE 263 MG/DL (83-110)
[2017-12-26 17:12] LABS: BEDSIDE GLUCOSE 155 MG/DL (83-110)
[2017-12-26 20:56] LABS: BEDSIDE GLUCOSE 200 MG/DL (83-110)
[2017-12-26] MEDS ORDERED: EUCERIN 120GM CREAM TOP (21:00)
[2017-12-26] MEDS ORDERED: LIDOCAINE 4% CREAM 5GM (LMX4) TOP (21:00)
[2017-12-26] MEDS: TAMSULOSIN 0.4 MG CAP PO (21:34)
[2017-12-26] MEDS: ASPIRIN 81 MG ENTERIC TAB PO (21:34)
[2017-12-26] MEDS: SENOKOT S TAB PO (21:34)
[2017-12-26] MEDS: LIDOCAINE 4% CREAM 5GM (LMX4) TOP (21:35)
[2017-12-26] MEDS: EUCERIN 120GM CREAM TOP (21:35)
[2017-12-27 05:43] LABS: BASO # 0.1 10^3/uL (0.0-0.2); BASO % 0.6 % (0.0-1.0); EOS # 0.2 10^3/uL (0.0-0.50); EOS % 1.9 % (0.0-3.0); HEMATOCRIT 38.8 % (42.0-52.0); HEMOGLOBIN 12.3 g/dl (14.0-18.0); LYMPH # 1.4 10^3/uL (1.5-4.5); LYMPH % 13.3 % (24.0-44.0); MEAN CORPUSCULAR HEMOGLOBIN 28.8 pg (27.0-33.0); MEAN CORPUSCULAR HGB CONC 31.7 g/dl (32.0-36.5); MEAN CORPUSCULAR VOLUME 90.9 fl (80.0-96.0); MONO # 1.1 10^3/uL (0.0-0.8); MONO % 10.8 % (0.0-5.0); NEUTROPHILS # 7.3 10^3/uL (1.8-7.7); NEUTROPHILS % 71.4 % (36.0-66.0); PLATELET COUNT, AUTOMATED 392 10^3/uL (150-450); RED BLOOD COUNT 4.27 10^6/uL (4.30-6.10); RED CELL DISTRIBUTION WIDTH 13.8 % (11.5-14.5); WHITE BLOOD COUNT 10.3 10^3/uL (4.0-10.0)
[2017-12-27 06:07] LABS: ALBUMIN 2.9 GM/DL (3.2-5.2); ALBUMIN/GLOBULIN RATIO 0.62 (1.00-1.93); ALKALINE PHOSPHATASE 186 U/L (45-117); ALT/SGPT 95 U/L (12-78); ANION GAP 9 MEQ/L (8-16); AST/SGOT 42 U/L (7-37); BLOOD UREA NITROGEN 26 MG/DL (7-18); CALCIUM LEVEL 9.9 MG/DL (8.8-10.2); CARBON DIOXIDE LEVEL 22 MEQ/L (21-32); CHLORIDE LEVEL 107 MEQ/L (98-107); GLOMERULAR FILTRATION RATE 43.5 (>35); GLUCOSE, FASTING 232 MG/DL (70-100); POTASSIUM SERUM 4.9 MEQ/L (3.5-5.1); SODIUM LEVEL 138 MEQ/L (136-145); TOTAL PROTEIN 7.6 GM/DL (6.4-8.2)
[2017-12-27] MEDS: guaiFENesin 200 MG TAB PO ×4 (09:15→21:15)
[2017-12-27] MEDS: EUCERIN 120GM CREAM TOP ×4 (09:16→21:15)
[2017-12-27] MEDS: LIDOCAINE 4% CREAM 5GM (LMX4) TOP ×4 (09:16→21:16)
[2017-12-27] MEDS: DOXYCYCLINE HYCLATE 100 MG TAB PO ×2 (09:16→21:15)
[2017-12-27] MEDS: HumaLOG INSULIN (NovoLOG) PER UNIT SC ×4 (09:17→21:00)
[2017-12-27 12:18] LABS: BEDSIDE GLUCOSE 279 MG/DL (83-110)
[2017-12-27] MEDS: KETOCONAZOLE 2% CREAM TOP ×2 (13:28→21:16)
[2017-12-27 17:24] LABS: BEDSIDE GLUCOSE 125 MG/DL (83-110)
[2017-12-27] MEDS: SENOKOT S TAB PO (21:15)
[2017-12-27] MEDS: ASPIRIN 81 MG ENTERIC TAB PO (21:15)
[2017-12-27] MEDS: TAMSULOSIN 0.4 MG CAP PO (21:15)
[2017-12-27] MEDS: ACETAMINOPHEN TAB 650MG DOSE (2X325MG) PO (21:17)
[2017-12-27 21:25] LABS: BEDSIDE GLUCOSE 205 MG/DL (83-110)
[2017-12-28] MEDS: HumaLOG INSULIN (NovoLOG) PER UNIT SC ×4 (07:54→20:19)
[2017-12-28 08:38] LABS: HEMATOCRIT 39.9 % (42.0-52.0); HEMOGLOBIN 12.7 g/dl (14.0-18.0); MEAN CORPUSCULAR HEMOGLOBIN 29.5 pg (27.0-33.0); MEAN CORPUSCULAR HGB CONC 31.8 g/dl (32.0-36.5); MEAN CORPUSCULAR VOLUME 92.6 fl (80.0-96.0); PLATELET COUNT, AUTOMATED 395 10^3/uL (150-450); RED BLOOD COUNT 4.31 10^6/uL (4.30-6.10); RED CELL DISTRIBUTION WIDTH 13.8 % (11.5-14.5); WHITE BLOOD COUNT 8.4 10^3/uL (4.0-10.0)
[2017-12-28] MEDS: DOXYCYCLINE HYCLATE 100 MG TAB PO ×2 (08:57→20:43)
[2017-12-28] MEDS: guaiFENesin 200 MG TAB PO ×4 (08:57→20:43)
[2017-12-28] MEDS: KETOCONAZOLE 2% CREAM TOP ×2 (08:58→20:43)
[2017-12-28] MEDS: LIDOCAINE 4% CREAM 5GM (LMX4) TOP (08:58)
[2017-12-28] MEDS: EUCERIN 120GM CREAM TOP ×4 (08:58→20:43)
[2017-12-28 12:49] LABS: BEDSIDE GLUCOSE 282 MG/DL (83-110)
[2017-12-28 18:06] LABS: BEDSIDE GLUCOSE 204 MG/DL (83-110)
[2017-12-28 18:07] LABS: BEDSIDE GLUCOSE 119 MG/DL (83-110)
[2017-12-28] MEDS: TAMSULOSIN 0.4 MG CAP PO (20:42)
[2017-12-28] MEDS: ASPIRIN 81 MG ENTERIC TAB PO (20:43)
[2017-12-28] MEDS: CYANOCOBALAMIN 500 MCG TAB PO (20:43)
[2017-12-28] MEDS: SENOKOT S TAB PO (20:43)
[2017-12-28] MEDS: ACETAMINOPHEN TAB 650MG DOSE (2X325MG) PO (20:44)
[2017-12-29 05:56] LABS: HEMOGLOBIN 11.5 g/dl (14.0-18.0); MEAN CORPUSCULAR HGB CONC 31.9 g/dl (32.0-36.5); MEAN CORPUSCULAR VOLUME 90.7 fl (80.0-96.0); PLATELET COUNT, AUTOMATED 366 10^3/uL (150-450); RED BLOOD COUNT 3.97 10^6/uL (4.30-6.10); RED CELL DISTRIBUTION WIDTH 13.8 % (11.5-14.5); WHITE BLOOD COUNT 8.5 10^3/uL (4.0-10.0)
[2017-12-29 06:23] LABS: ANION GAP 7 MEQ/L (8-16); BLOOD UREA NITROGEN 43 MG/DL (7-18); CALCIUM LEVEL 9.5 MG/DL (8.8-10.2); CARBON DIOXIDE LEVEL 25 MEQ/L (21-32); CHLORIDE LEVEL 107 MEQ/L (98-107); GLOMERULAR FILTRATION RATE 40.6 (>35); GLUCOSE, FASTING 211 MG/DL (70-100); POTASSIUM SERUM 4.8 MEQ/L (3.5-5.1); SODIUM LEVEL 139 MEQ/L (136-145)
[2017-12-29] MEDS: guaiFENesin 200 MG TAB PO ×2 (07:46→12:05)
[2017-12-29] MEDS: HumaLOG INSULIN (NovoLOG) PER UNIT SC ×2 (07:46→12:05)
[2017-12-29] MEDS: DOXYCYCLINE HYCLATE 100 MG TAB PO (07:46)
[2017-12-29] MEDS: EUCERIN 120GM CREAM TOP (07:46)
[2017-12-29] MEDS: KETOCONAZOLE 2% CREAM TOP (07:46)
[2017-12-29 21:06] LABS: BEDSIDE GLUCOSE 241 MG/DL (83-110)
[2017-12-29 21:06] LABS: BEDSIDE GLUCOSE 257 MG/DL (83-110)
== END 2017-12-29 13:08 | DRG 194 ==
LOC: M MS4PR 12-22 21:30 → M MSPAV 12-23 18:26 → M ED 11:32 → M ED INP 14:42 → M PCU 16:26
DX: J12.1 Respiratory syncytial virus pneumonia (principal); I47.2 Ventricular tachycardia; E11.22 Type 2 diabetes mellitus with diabetic chronic kidney disease; E78.5 Hyperlipidemia, unspecified; N40.0 Benign prostatic hyperplasia without lower urinary tract symptoms; E83.42 Hypomagnesemia; E86.0 Dehydration; E53.8 Deficiency of other specified B group vitamins; I27.20 Pulmonary hypertension, unspecified; M79.671 Pain in right foot; M88.9 Osteitis deformans of unspecified bone; R53.83 Other fatigue; M79.672 Pain in left foot; R74.0 Nonspecific elevation of levels of transaminase and lactic acid dehydrogenase [LDH]; N18.3 Chronic kidney disease, stage 3 (moderate); Z79.82 Long term (current) use of aspirin; Z79.4 Long term (current) use of insulin; Z79.899 Other long term (current) drug therapy; Z88.0 Allergy status to penicillin; Z95.2 Presence of prosthetic heart valve

== ENCOUNTER → 2018-01-05 | Outpatient (REF) ==
[2018-01-05 09:59] LABS: HEMATOCRIT 41.3 % (42.0-52.0); HEMOGLOBIN 12.8 g/dl (13.5-17.5); MEAN CORPUSCULAR HEMOGLOBIN 29.3 pg (27.0-33.0); MEAN CORPUSCULAR VOLUME 94.5 fl (80.0-96.0); PLATELET COUNT, AUTOMATED 283 10^3/uL (150-450); RED BLOOD COUNT 4.37 10^6/uL (4.30-6.10); WHITE BLOOD COUNT 8.1 10^3/uL (4.0-10.0)
[2018-01-05 10:32] LABS: ANION GAP 8 MEQ/L (8-16); BLOOD UREA NITROGEN 34 MG/DL (7-18); CALCIUM LEVEL 9.3 MG/DL (8.8-10.2); CARBON DIOXIDE LEVEL 26 MEQ/L (21-32); CHLORIDE LEVEL 107 MEQ/L (98-107); CREATININE FOR GFR 1.86 MG/DL (0.70-1.30); GLOMERULAR FILTRATION RATE 36.6 (>35); GLUCOSE, FASTING 176 MG/DL (70-100); POTASSIUM SERUM 4.9 MEQ/L (3.5-5.1); SODIUM LEVEL 141 MEQ/L (136-145)
== END ==
DX: E11.9 Type 2 diabetes mellitus without complications (principal)